=== PATIENT | male | born 2000 | race Caucasian/White ===

== ENCOUNTER 2023-11-21 08:55 | Emergency (ER) | payer MEDICAID, OTHER ==
[2023-11-21] MEDS ORDERED: Lidocaine 1% with EPINEPHrine 1:100,000 10 ML MDV INJECT ONE (10:01)
[2023-11-21] MEDS: Lidocaine 1% with EPINEPHrine 1:100,000 20 ML MDV INJECT ONE (10:13)
[2023-11-21] MEDS ORDERED: Lidocaine 1% with EPINEPHrine 1:100,000 20 ML MDV INJECT ONE (10:15)
[2023-11-21 11:40] VITALS: BP 127/79; PULSE 77
== END 2023-11-21 11:35 | disposition home or self-care (01) ==
LOC: JD.ED 08:55
DX: S61.212A Laceration without foreign body of right middle finger without damage to nail, initial encounter (principal); J45.909 Unspecified asthma, uncomplicated; Z79.899 Other long term (current) drug therapy; Z91.048 Other nonmedicinal substance allergy status; W29.8XXA Contact with other powered hand tools and household machinery, initial encounter
CPT/HCPCS: 12001; 99282; J3490